=== PATIENT | male | born 1990 | race Caucasian/White ===

== ENCOUNTER 2022-02-21 13:09 | Emergency (ER) | payer SELFPAY ==
[2022-02-21] MEDS ORDERED: Lidocaine 1% (PF) 30 ML VIAL ONE (15:12)
[2022-02-21] MEDS ORDERED: Triple Antibiotic Oint 1 GM Packet ONE (15:12)
== END 2022-02-21 15:52 | disposition home or self-care (01) ==
LOC: CSHERS 13:09
DX: S61.411A Laceration without foreign body of right hand, initial encounter (principal); F17.210 Nicotine dependence, cigarettes, uncomplicated; W26.8XXA Contact with other sharp object(s), not elsewhere classified, initial encounter
CPT/HCPCS: 12002; J2001

== ENCOUNTER 2023-07-11 08:38 | Emergency (ER) | payer OTHER, SELFPAY | END 2023-07-11 10:04 | disposition home or self-care (01) | LOC: CSHERS 08:38 | DX: S63.501A Unspecified sprain of right wrist, initial encounter (principal); S60.221A Contusion of right hand, initial encounter; F17.210 Nicotine dependence, cigarettes, uncomplicated; W23.1XXA Caught, crushed, jammed, or pinched between stationary objects, initial encounter ==

== ENCOUNTER 2024-01-30 02:36 | Emergency (ER) | payer BC, OTHER ==
[2024-01-30] MEDS ORDERED: Ondansetron PF 4 MG/2 ML Vial ONE (02:54)
[2024-01-30 03:26] LABS: Anion Gap 16 mmol/L (10-20); BUN (Urea Nitrogen) 11 mg/dL (8.9-20.6); Calc. Creatinine Clearance 0 mL/min (70-130); Calcium 9.5 mg/dL (7.8-10.44); Carbon Dioxide 24 mmol/L (22-29); Chloride 103 mmol/L (98-107); Estimated GFR 80; Glucose 131 mg/dL (70-105); Potassium 4.3 mmol/L (3.5-5.1); Sodium 139 mmol/L (136-145)
== END 2024-01-30 04:35 | disposition home or self-care (01) ==
LOC: CSHERS 02:36
DX: R11.2 Nausea with vomiting, unspecified (principal); R19.7 Diarrhea, unspecified; F17.210 Nicotine dependence, cigarettes, uncomplicated
CPT/HCPCS: 80048; 96374; J2405